=== PATIENT | female | born 1990 | race Caucasian/White ===

== ENCOUNTER 2019-02-06 05:37 | Inpatient (IN) | payer MEDICAID ==
[~2019-02-06] VITALS: Ht 152.4 cm; Wt 66.1 kg
[2019-02-06] MEDS: LACTATED RINGER'S 1,000 ML IV SCH ×2 (06:20→07:30)
[2019-02-06] MEDS ORDERED: METHYLERGONOVINE 0.2 MG INJ IM PRN ×2 (06:30→10:00)
[2019-02-06] MEDS ORDERED: CEFAZOLIN 2 GM/50 ML (PMX) 50 ML IVPB SCH ×2 (06:30→10:00)
[2019-02-06] MEDS ORDERED: MISOPROSTOL 200 MCG TAB PR PRN ×2 (06:30→10:00)
[2019-02-06] MEDS ORDERED: OXYTOCIN 30 UNITS/LR 500 ML IV SCH (06:30)
[2019-02-06] MEDS ORDERED: CARBOPROST 250 MCG INJ IM PRN ×2 (06:30→10:00)
[2019-02-06] MEDS ORDERED: OXYTOCIN 30 UNITS/LR 500 ML IV PRN ×2 (06:30→10:00)
[2019-02-06 06:33] VITALS: BP 111/71; PULSE 63; RESP 16
[2019-02-06] MEDS ORDERED: PHENYLephrine (100 MCG/ML) 10ML SYG ONE (07:00)
[2019-02-06] MEDS ORDERED: morphine SULFATE/PF (10 MG/10 ML) INJ ONE (07:53)
[2019-02-06] MEDS ORDERED: FENTAnyl 50 MCG/ML VIAL ONE (07:54)
[2019-02-06] MEDS ORDERED: ONDANSETRON 4 MG INJ ONE (08:01)
[2019-02-06] MEDS ORDERED: DEXAMETHASONE 4 MG/ML 1 ML INJ ONE (08:01)
--- NOTE | 2019-02-06 08:04 | PREOPHP ---
DATE OF ADMISSION: 02/06/2019 HISTORY OF PRESENT ILLNESS: Daly Flores is a 28-year-old 3, para 2, EDC 02/27/2019 intrau terine at 37 weeks gestational age with a history of previous x1. Currently diag nosed with cholestasis of and what was recommended for delivery by perinatologist, Dr. Crystal wren secondary to cholestasis of . She reports good movement. She denies any contracti ons, vaginal bleeding, or discharge. Her care took place at [facility]. PAST MEDICAL HISTORY: Cholestasis of . MEDICATIONS: vitamins and Actigall 300 mg p.o. t.i.d. PAST SURGICAL HISTORY: Previous section x1. OBSTETRICAL HISTORY: Previous section x1. OBSTETRIC HISTORY: Vaginal delivery x1, x1 previous section. GYNECOLOGIC HISTORY: 12, regular 3 to 4 days. Denies any sexually transmitted infections. Sexually active with 1 partner. SOCIAL HISTORY: Denies any smoking, drugs or alcohol. FAMILY HISTORY: None. REVIEW OF SYSTEMS: All within normal except history of present illness. PHYSICAL EXAMINATION: HEENT: Within normal. LUNGS: CTA bilateral. CARDIOVASCULAR: S1, S2, regular rhythm. ABDOMEN: Gravid, nontender. Negative CVA bilateral. EXTREMITIES: Negative edema. No calf tenderness. PELVIC: Vaginal exam deferred. heart tracing category 1. Gordon: no contractions. LABS: Bile acids on 01/18/2019, total bile acid was 64.8, AST 43, ALT 68. ASSESSMENT: Intrauterine at 37 weeks' gestational age, previous section x1, padmini stasis of . Desires elective repeat delivery. Declined vaginal after edy an. PLAN: Consent for a repeat delivery. Risks, benefits and alternatives explained. All ques tions were answered. Dictated By: CARISSA OZUNA/MIGUEL Conf#: [id number] DID#: [id number]
--- NOTE | 2019-02-06 08:07 | PREAC ---
Date/Time of Note Date/Time of Note DATE: 02/06/19 TIME: 08:03 Anesthesia Eval and Record Evaluation Time Pre-Procedure Interview DATE: 02/06/19 TIME: 07:45 Age 28 Sex female NPO: 8 hrs Preoperative diagnosis iup at 39 weeks Planned procedure repeat c section Past Medical History Past Medical History: None Surgery & Anesthesia Issues No known issue Meds Anticoagulation: No Beta Hoang within 24 hr: No Reason Beta Hoang not given: Pt. not on B-Hoang Current Medications Lactated Ringer's 1,000 ml @ 125 mls/hr Q8H IV Last administered on 02/06/19at 07:30; Admin Dose 125 MLS/HR; Start 02/06/19 at 06:22 Cefazolin Sodium/ Dextrose 50 ml @ 100 mls/hr ONCE IVPB ; Start 02/06/19 at 06:30 Oxytocin/Lactated Ringer's 500 ml @ 125 mls/hr POST IV ; Start 02/06/19 at 06:30 Oxytocin/Lactated Ringer's 500 ml @ 0 mls/hr ONCE PRN IV .VAGINAL BLEEDING; Start 02/06/19 at 06:30 Methylergonovine Maleate (Methergine) 0.2 mg ONCE PRN IM .VAGINAL BLEEDING; Start 02/06/19 at 06:30 Carboprost Tromethamine (Hemabate) 250 mcg ONCE PRN IM .VAGINAL BLEEDING; Start 02/06/19 at 06:30 Misoprostol (Cytotec) 1,000 mcg ONCE PRN [place] .VAGINAL BLEEDING; Start 02/06/19 at 06:30 Meds reviewed: Yes Allergies Coded Allergies: No Known Allergy (Unverified , 02/06/19) Allergies Reviewed: Yes Labs/Studies Labs Reviewed: Reviewed by anesthesiologist Result Diagram: 02/06/19 0620 Laboratory Tests 02/06/19 06:20 Blood Bank Test 02/06/19 06:20 Antibody Screen NEGATIVE Blood Type O POSITIVE Rh Immune Globulin Candidate NO test: Positive Pre-procedure Exam Last vitals Vital Signs Date Temp Pulse Resp B/P (MAP) Pulse Ox O2 O2 Flow FiO2 Time Delivery Rate 02/06/19 98.2 63 16 111/71 Room Air 06:33 (84) Airway: Adequate mouth opening, Adequate thyromental dist Mallampati: Mallampati I Teeth: Normal Lung: Normal Heart: Normal ASA Physical Status ASA physical status: 2 Emergency: None Planned Anesthetic Neuraxial: Spinal Planned Pain Management Parenteral pain med Pre-operative Attestations Prior to commencing anesthesia and surgery, the patient was re-evaluated, there was verification of: *The patient's identity *The results of appropriate recent lab work and preoperative vital signs *The above evaluation not changing prior to induction *Anesthetic plan, risk benefits, alternative and complications discussed with patient/family; questions answered; patient/family understands, accepts and wishes to proceed. LASHELL EDGAR Feb 06, 2019 08:06
[2019-02-06] MEDS ORDERED: NALOXONE (0.4 MG/ML) INJ IV PRN (08:30)
[2019-02-06] MEDS ORDERED: DIPHENHYDRAMINE 50 MG INJ IV PRN (08:30)
[2019-02-06] MEDS ORDERED: ZOLPIDEM 5 MG TAB PO PRN (08:30)
[2019-02-06] MEDS ORDERED: HYDROmorphONE 0.5 MG/0.5 ML SYG IV PRN ×2 (08:30)
[2019-02-06] MEDS ORDERED: ONDANSETRON 4 MG INJ IV PRN (08:30)
--- NOTE | 2019-02-06 09:35 | OPPN ---
Date/Time of Note Date/Time of Note DATE: 02/06/19 TIME: 09:33 Operative Report Planned Procedure Procedure date Feb 06, 2019 Procedure(s) repeat low transverse CD Performed by see signature line Traffic Administrator: JONAS RUSHING M.D. 2nd Traffic Administrator none Pre-procedure diagnosis Intrauterine at 37 weeks' gestational age, previous section x1, cholestasis of . Desires elective repeat delivery. Declined vaginal after [id number] Anesthesia Type: [id number] spinal Post-Procedure Post-procedure diagnosis Intrauterine at 37 weeks' gestational age, previous section x1, cholestasis of . Desires elective repeat delivery. Declined vaginal after Findings a viable male 9/9 weight 6lb 6 oz. normal uterus tubes and ovaries. Estimated Blood Loss: 500 - 600 mls Specimen(s) none Grafts/Implant(s) none Complication(s) none CARISSA SARAVIA MD Feb 06, 2019 09:35
--- NOTE | 2019-02-06 09:59 | OPR ---
DATE OF OPERATION: 02/06/2019 PREOPERATIVE DIAGNOSES: Intrauterine at 37 weeks' gestational age, previous secti on x1, cholestasis of . Desires elective repeat delivery. Declined vaginal after . POSTOPERATIVE DIAGNOSES: Intrauterine at 37 weeks' gestational age, previous sect ion x1, cholestasis of . Desires elective repeat delivery. Declined vaginal after . OPERATION PERFORMED: Repeat low transverse delivery. SURGEON: Louis Mike MD CARBURETOR REPAIRER: Ravindra Renee MD ANESTHESIA: Spinal. COMPLICATIONS: None. ESTIMATED BLOOD LOSS: 500 mL. FINDINGS: A viable male, 9 and 9 respectively at 1 and 5 minutes, weight 6 pounds 6 ounces in cephalic presentation. Normal uterus, tubes and ovaries. DESCRIPTION OF PROCEDURE: After explaining the risks, benefits and alternatives, the patient and con sent signed in chart, the patient was taken to the operating room where spinal anesthesia was found t o be adequate. She was then prepared and draped in normal sterile fashion in dorsal supine position with a leftward tilt. A Pfannenstiel skin incision was then made with a scalpel and carried to under lying fascia. The fascia was incised in midline and incision was extended laterally with Lazo scisso rs. The superior aspect of the fascial incision was grasped with curved clamps, elevated and the und erlying rectus muscles dissected off bluntly. Attention was then turned to the inferior aspect of in cision, which in similar fashion was grasped, tented up with curved clamps and the rectus muscles dis sected off bluntly. The rectus was in midline, peritoneum identified, tented up, and enter ed sharply with Metzenbaum scissors. Incision was then extended superiorly with good visualization o f bladder. The bladder blade was inserted and the lower uterine segment incised in transverse fashio n with the scalpel. The uterine incision was extended laterally. The bladder blade was removed and the infant's head delivered atraumatically. The nose and mouth were suctioned and cord clamped and c ut. The was handed off to awaiting grinder operator tool. The placenta was then removed. The uterus exteriorized and cleared of all clots and debris. The uterine incision was repaired with 1-0 chromic in a running locked fashion. A second layer of same suture was used for hemostasis and imbrication. The uterus was returned to the abdomen. The gutters were cleared of all clots. The peritoneum and rectus abdominis muscles were reapproximated with 2-0 Vicryl in interrupted fashion. The fascia was reapproximated with 0 Vicryl in running fashion. The subcutaneous tissue was reapproximated with 2- 0 plain gut in a running fashion. The skin was closed with samuel. The patient tolerated procedure well. Sponge, lap and needle counts were correct. The patient was taken to recovery room in stable condition. Dictated By: LOUIS OZUNA/MIGUEL Conf#: [id number] DID#: [id number]
[2019-02-06] MEDS ORDERED: NACL 0.9% 3 ML SYG IV SCH (10:00)
[2019-02-06] MEDS ORDERED: LANOLIN HPA 1 PKT TOP PRN (10:00)
[2019-02-06] MEDS ORDERED: OXYCODONE/ACETAMINOPHEN (5/325) TAB PO PRN ×2 (10:00)
[2019-02-06] MEDS: OXYTOCIN 30 UNITS/LR 500 ML IV SCH ×2 (11:53→17:52)
[2019-02-06 13:00] VITALS: BP 112/72; PULSE 68; RESP 16
[2019-02-06] MEDS: KETOROLAC 30 MG INJ IV PRN (16:03)
[2019-02-06 16:10] VITALS: BP 115/65; PULSE 67; RESP 18
[2019-02-06] MEDS: CEFAZOLIN 2 GM/50 ML (PMX) 50 ML IVPB SCH (17:51)
[2019-02-06 20:00] VITALS: BP 98/50; PULSE 67; RESP 18
[2019-02-06] MEDS: URSODIOL 300 MG CAP PO SCH (21:39)
[2019-02-07] MEDS: CEFAZOLIN 2 GM/50 ML (PMX) 50 ML IVPB SCH ×2 (02:13→10:16)
[2019-02-07] MEDS: KETOROLAC 30 MG INJ IV PRN (04:05)
[2019-02-07 05:10] VITALS: BP 97/56; PULSE 69; RESP 18
[2019-02-07 08:00] VITALS: BP 91/51; PULSE 71; RESP 18
[2019-02-07] MEDS: URSODIOL 300 MG CAP PO SCH ×2 (08:35→21:10)
--- NOTE | 2019-02-07 09:12 | QN ---
Documentation Comment progress note pod 1 patient seen and evaluated no complaints vs stable afebrile ab dressing clean/dry appropriate tenderness no distention extremity no edema no calf tenderness a/ sp cd pod 1 stable afebrile p/ encourage ambulation repeat wbc in am CARISSA SARAVIA MD Feb 07, 2019 09:12
--- NOTE | 2019-02-07 10:58 | PAC ---
Date/Time of Note Date/Time of Note DATE: 02/07/19 TIME: 10:58 Post-Anesthesia Notes Post-Anesthesia Note Last documented vital signs Vital Signs Date Temp Pulse Resp B/P (MAP) Pulse Ox O2 O2 Flow FiO2 Time Delivery Rate 02/07/19 98.1 71 18 91/51 (64) 96 08:00 02/07/19 98 Room Air 05:10 Activity: WNL Respiratory function: WNL Cardiovascular function: WNL Mental status: Baseline Pain reasonably controlled: Yes Hydration appropriate: Yes Nausea/Vomiting absent: Yes LASHELL EDGAR Feb 07, 2019 10:58
[2019-02-07] MEDS: IBUPROFEN 600 MG TAB PO SCH ×3 (12:25→23:57)
[2019-02-07 16:00] VITALS: BP 88/49; PULSE 62; RESP 18
[2019-02-07] MEDS: DEXTROSE 5%-LR 1,000 ML IV SCH (18:45)
[2019-02-07 20:00] VITALS: BP 96/53; PULSE 65; RESP 19
[2019-02-07] MEDS: FERROUS SULFATE (EC) 325 MG TAB PO SCH (21:10)
[2019-02-08] MEDS: DEXTROSE 5%-LR 1,000 ML IV SCH ×2 (03:24→11:00)
[2019-02-08 04:15] VITALS: BP 97/56; PULSE 64; RESP 20
[2019-02-08] MEDS: IBUPROFEN 600 MG TAB PO SCH ×4 (05:50→23:42)
[2019-02-08 08:00] VITALS: BP 103/64; PULSE 64; RESP 18
[2019-02-08] MEDS: FERROUS SULFATE (EC) 325 MG TAB PO SCH ×2 (09:07→20:30)
[2019-02-08] MEDS: URSODIOL 300 MG CAP PO SCH ×2 (09:07→20:30)
--- NOTE | 2019-02-08 10:26 | OPPN ---
Date/Time of Note Date/Time of Note DATE: 02/08/19 TIME: 10:26 Anesthesia Follow up Anesthesia Follow up Last documented vital signs Vital Signs Date Temp Pulse Resp B/P (MAP) Pulse Ox O2 O2 Flow FiO2 Time Delivery Rate 02/08/19 97.8 64 18 103/64 08:00 (77) 02/08/19 Room Air 04:15 02/07/19 98 05:10 Respiratory function: WNL Cardiovascular function: WNL Comments satisfactory analgesia with intrathecal morphine. no complications noted LASHELL EDGAR Feb 08, 2019 10:26
[2019-02-08 16:00] VITALS: BP 105/60; PULSE 73; RESP 16
--- NOTE | 2019-02-08 17:55 | PD.PPDC ---
HOUSEHOLD MANAGER Discharge Instruction Condition [id number] Patient Condition: Kliwv6x Fair Diet Vdoga6Lf Diet: Jzohy0g Resume Regular Diet Activity/Restrictions [id number] Activity: Egxyu7i Normal Activity May Shower Rzgec8Rn Restrictions: Nxhyo8g No Exercising No Lifting No Driving No Sexual Activity Nothing in the Vagina No [place] No Tampons, douche Follow-up Follow-up with Physician: 2, Day/Days Provider Information: to remove samuel Return to clinic for Raukj4Mb IRONER SOCK Instructions: Wjgmj9y Fever greater than 101 Chills Worsening abdominal pain Excessive Vaginal Bleeding More than 2 pads per hour Unable to tolerate diet [id number] OB Instructions: Iqisf0i Breast Tenderness Depression Blurried Vision Headache Sciuq0Tq Surgical Instructions: Wpdqs1n Incisional Drainage Incisional Redness CARISSA SARAVIA MD Feb 08, 2019 17:55
--- NOTE | 2019-02-08 17:57 | QN ---
Documentation Comment progress note pod 2 patient seen and evaluated no complaints vs stable afebrile ab c/d/i no appropriate tenderness no distention extremity no edema no calf tenderness a/ sp cd pod 2 stable afebrile p/ encourage ambulation discharge home tomorrow f/u in the office this thursday to remove samuel CARISSA SARAVIA MD Feb 08, 2019 17:57
[2019-02-08 19:30] VITALS: BP 103/80; PULSE 80; RESP 19
[2019-02-09 03:59] VITALS: BP 102/62; PULSE 80; RESP 19
[2019-02-09] MEDS: IBUPROFEN 600 MG TAB PO SCH ×2 (05:46→11:52)
--- NOTE | 2019-02-09 06:54 | DS ---
DATE OF ADMISSION: 02/06/2019 DATE OF DISCHARGE: 02/09/2019 PRIMARY DIAGNOSES: 1. Intrauterine at 37 weeks' gestational age. 2. Previous section x1. 3. Cholestasis of . 4. Desires elective repeat delivery. 5. Declined vaginal after . PROCEDURE: Repeat low transverse delivery. CONDITION ON DISCHARGE: Stable. ACTIVITY: None per vaginal, no lifting x6 weeks. DIET: Regular. MEDICATIONS ON DISCHARGE: 1. Motrin. 2. Iron. 3. Colace. 4. Actigall 300 mg p.o. b.i.d. #60. DISCHARGE SUMMARY: Ms. Daly Flores underwent a repeat low transverse delivery on 019. She had a viable male, 9 and 9 respectively at 1 and 5 minutes, weight 6 pounds 6 ounces. She had an uneventful postop day 1 and 2. She will be discharged on postop day 3. Her incision is clean, dry, and intact. She is ambulating, tolerating diet, positive flatulence, and positive bowel movement. She will follow up in the clinic this Thursday to remove her samuel. Dictated By: CARISSA OZUNA/MIGUEL Conf#: [id number] DID#: [id number]
[2019-02-09 08:00] VITALS: BP 99/55; PULSE 66; RESP 18
[2019-02-09] MEDS: URSODIOL 300 MG CAP PO SCH (10:01)
[2019-02-09] MEDS: FERROUS SULFATE (EC) 325 MG TAB PO SCH (10:01)
[2019-02-09] MEDS ORDERED: DIPHTH/TET/ACEL PERTUSS (ADULT) 0.5 ML VIAL IM* ONE (12:00)
[2019-02-09 15:34] VITALS: BP 108/70; PULSE 71; RESP 18
--- NOTE | 2019-02-10 16:30 | DELSUM ---
Delivery Summary A-C Datetime Report Generated by CPN: 02/10/2019 16:30 DELIVERY PERSONNEL Laryngologist: Merlos, Holly MATERNAL INFORMATION Delivery Anesthesia: Spinal Medications in Delivery: see anes. records Delivery QBL (ml): 700 Placenta Cultured: No Maternal Complications: Other Other Maternal Complications: Cholestasis LABOR SUMMARY EDC: 02/27/2019 00:00 No. Babies in Womb: 1 Attempted: No Labor Anesthesia: Intrathecal LABOR INFORMATION Reason for Induction: Not Applicable Oxytocin: N/A Group B Beta Strep: N/A Antibiotics # of Doses: 1 Antibiotics Time of Last Dose: 02/06/2019 08:00 Steroids Given: None Reason Steroids Not Administered: Not Applicable MEMBRANES Membranes Rupture Method: Artificial Rupture of Membranes: 02/06/2019 08:33 Length of Rupture (hr): 0.00 Amniotic Fluid Color: Clear Amniotic Fluid Amount: Moderate Amniotic Fluid Odor: None STAGES OF LABOR Stage 3 hr: 0 Stage 3 min: 1 CSECTION DELIVERY Primary Indication: Repeat Elective Secondary Indication: N/A CSection Urgency: Elective CSection Incidence: Repeat Labor: No Labor Elective: Elective CSection Incision: Lower Uterine Transverse BABY A INFORMATION Delivery Date/Time: 02/06/2019 08:33 Method of Delivery: Born in Route : No : N/A Forceps: N/A Vacuum Extraction: N/A Shoulder Dystocia : N/A SHOULDER DYSTOCIA BABY A Delivery Date/Time: 02/06/2019 08:33 PRESENTATION/POSITION BABY A Presentation: Cephalic Cephalic Presentation: Vertex Breech Presentation: N/A PLACENTA INFORMATION BABY A Placenta Delivery Time : 02/06/2019 08:34 Placenta Method of Delivery: Manual Removal Placenta Status: Delivered SCORES BABY A Heart Rate 1 min: >100 bpm Resp Effort 1 min: Good Cry Reflex Irritability 1 min: Cough/Sneeze/Pulls Away Muscle Tone 1 min: Active Motion Color 1 min: Body [place], Extremit Blue Resuscitation Effort 1 min: Tactile Stimulation SCORE 1 MIN: 9 Heart Rate 5 min: >100 bpm Resp Effort 5 min: Good Cry Reflex Irritability 5 min: Cough/Sneeze/Pulls Away Muscle Tone 5 min: Active Motion Color 5 min: Body [place], Extremit Blue Resuscitation Effort 5 min: Tactile Stimulation SCORE 5 MIN: 9 INFANT INFORMATION BABY A Gestational Age at Delivery: 37.0 Gestational Status: Early Term- 37- 38.6 Weeks Outcome : Liveborn Infant Condition : Stable Infant Sex: Male IDENTIFICATION/MEDS BABY A ID Band Number: [id number] ID Band Location: Right Leg; Left Arm Sensor Applied: Yes Sensor Number: [id number] Sensor Location : Cord Clamp Vitamin K Given : Left Thigh Erythromycin Given: Given Both Eyes WEIGHT/LENGTH BABY A Infant Birthweight (gm): 2900 Infant Weight (lb): 6 Weight (oz): 6 Length (in): 19.00 Length (cm): 48.26 CORD INFORMATION BABY A No. Cord Vessels: 3 Nuchal Cord : N/A Cord Blood Taken: Yes Suction: Mouth; Nose ASSESSMENT BABY A Infant Complications: None Physical Findings at Delivery: Within Normal Limits Infant Respirations: Appears Normal Channel Cementer Insole Machine/ALS Called : No Infant Care By: Gris Montgomery/ Brenda Pan Transferred To: Remains with Mother
== END 2019-02-09 16:20 | disposition home or self-care (01) | DRG 788 ==
LOC: L-D 05:37 → PP1 12:51
PROVIDERS: ADMIT Obstetrics & Gynecology; ATTEND Obstetrics & Gynecology
PROC: 10D00Z1 Extraction of Products of Conception, Low, Open Approach (ICD-10-PCS; principal; 2019-02-06 07:30)
DX: O65.5 Obstructed labor due to abnormality of maternal pelvic organs (principal); O34.211 Maternal care for low transverse scar from previous cesarean delivery; O99.613 Diseases of the digestive system complicating pregnancy, third trimester; Z3A.37 37 weeks gestation of pregnancy; Z37.0 Single live birth
CPT/HCPCS: 85014; 85018; 85025; 85610; 85730; 86592; 86850; 86900; 86901; 87340; 90715; 99464; J0690; J1100; J1170; J1200; J1885; J2210; J2274; J2370; J2405; J2590; J3010; J7120; J7121